=== PATIENT | male | born 1980 | race Caucasian/White ===

== ENCOUNTER → 2019-05-27 10:19 | Outpatient (CLI) | payer MEDICARE, MEDICAID, SELFPAY ==
--- NOTE | 2019-05-27 10:36 | CT_ITS ---
CT sinus wo con INDICATION: ITS.REASON: CHRONIC SINUSITIS ORDERING PHYSICIAN: Mack Bowen PATIENT AGE: 38 years COMPARISON: None TECHNIQUE: Contrast Used: Oral Contrast: Axial images were obtained. Sagittal and coronal reformatted images are reviewed as well. All CT scans at the facility use one or more dose reduction, viz: automated exposure control, ma/kV adjustment per patient size (including targeted exams where dose is matched to indication, i.e. head), or iterative reconstruction technique. FINDINGS: There is only mild mucosal thickening of the ethmoid sinuses. There is minimal mucosal thickening involving the floor of the left maxillary sinus. The frontal and sphenoid sinus has an unremarkable appearance. No sinus air-fluid level is evident. There is a small septal spur projecting toward the left with minimal leftward nasal septal deviation in the mid aspect of the nasal septum. No mastoid effusion. The TMJs and orbits have an unremarkable appearance. Scattered small lymph nodes are present in the neck. IMPRESSION: 1. Only minimal mucosal thickening of the paranasal sinuses. No sinus air-fluid level or sinus mass. 2. Small septal spur with minimal leftward nasal septal deviation.
== END ==
PROVIDERS: PCP Nurse Practitioner; Visit Provider Allergy & Immunology
DX: J32.9 Chronic sinusitis, unspecified (principal)
CPT/HCPCS: 70486